=== PATIENT | female | born 1990 | race Caucasian/White ===

== ENCOUNTER 2024-03-02 09:10 | Emergency (ER) | payer BC, SELFPAY ==
[2024-03-02 09:15] VITALS: BP 127/76
[2024-03-02 09:46] VITALS: BMI 26.1
[2024-03-02] MEDS: TYLENOL 1000 MG PO (09:50)
[2024-03-02] MEDS: NSS 500 IV (09:53)
[2024-03-02] MEDS: BENADRYL 25 MG IV (09:54)
[2024-03-02] MEDS: REGLAN 10 MG IM (09:56)
--- NOTE | 2024-03-02 10:19 | ED.GENMED ---
History of Present Illness
General
Chief Complaint: Headache
Time Seen by Provider: 03/02/24 09:24
History of Present Illness
History of Present Illness:
33-year-old female with history of migraines presenting to the emergency department for migraine headache. Patient reports severe migraine headache. Her headaches have been worsening within the past 5 weeks, and in the past 3 days have
become more severe, frontal with photophobia and phonophobia. Feel consistent with her typical migraines, however worse in intensity. Denies any recent fall or trauma. Denies any focal weakness or sensory deficits to her extremities. Denies any
fever or systemic symptoms. Notes that she did take an Imitrex prior to arrival, without relief of her symptoms. Denies any complaints such as vaginal bleeding or leakage of fluids. Denies abdominal pain. Denies additional acute medical
complaints
Phy Exam
Physical Exam
Physical Exam:
General: Well-appearing, no clinical signs of dehydration, nontoxic and in no acute distress
HEENT: protecting airway
Neck: appears supple
CV: Normal heart rate, regular rhythm, no evidence of cyanosis
Resp: No accessory muscle use, no increased work of breathing, lungs clear to auscultation bilaterally
Abd: Soft and non-distended, no tenderness to palpation, normal bowel sounds
Extremities: No deformities, no swelling, no erythema, pulses and sensation intact
Neuro: alert, no focal neurologic deficit
: deferred
Rectal: deferred
Psych: Normal affect
Skin: Intact
Course
Orders/Labs/Results
Orders:
Orders
03/02/24 09:36
0.9% Sodium Chloride 500 ml [Nss] 500 ml IV BOLUS
Acetaminophen [Tylenol] 1,000 mg PO NOW STA
Diphenhydramine [Benadryl] 25 mg IV NOW STA
Metoclopramide [Reglan] 10 mg IM NOW STA
03/02/24 11:06
0.9% Sodium Chloride 1000 ml [Nss] 1,000 ml IV BOLUS
03/02/24 12:23
Magnesium Sulfate 1 G/D5w [Magnesium Sulfate] 1 gm in 100 ml IV NOW
03/02/24 12:59
CT Head W/o Iv Contrast Urgent
Comment:
Reason For Exam: intractable headache, 13 weeks preg, consents
Vital Signs
Initial and Last Documented VS:
Initial Vital Signs
Temp Pulse Resp BP Pulse Ox
99.5 F 63 16 127/76 98
03/02/24 09:15 03/02/24 09:15 03/02/24 09:15 03/02/24 09:15 03/02/24 09:15
Last Documented Vital Signs
Temp Pulse Resp BP Pulse Ox
99.5 F 51 16 107/51 99
03/02/24 09:15 03/02/24 11:29 03/02/24 09:15 03/02/24 11:29 03/02/24 11:29
MDM/Problems Addressed
MDM/Problems Addressed:
33-year-old female, at 13 weeks gestation with history of migraines presenting to the emergency department for migraine. Vital signs are normal.
On examination, patient well-appearing, nontoxic. Benign and neurologic exam, no focal deficits. Syndrome presentation appears most consistent with migrainous headache. Patient afebrile without systemic symptoms. No meningismus, without concern
for meningitis. Again no focal neurologic deficits, without concern for central neurologic process. Blood pressure within normal limits, without concern for pseudotumor cerebri or preeclampsia. Will treat with Reglan, Benadryl, Tylenol and
reassess for improvement. Will also obtain heart tones
11:00 -patient reports slight improvement of symptoms. Will administer additional fluids. Normal heart rate on ultrasound by bedside
12:20 -patient sleeping comfortably, however continues to express headache. Will try IV magnesium. Given persistence of symptoms, in shared decision-making, decision made to proceed with CT brain
14:20 -CT negative. Patient notes some symptom improvement after magnesium. She feels comfortable with discharge home. She has a follow-up appoint with her neurologist on Monday. Feel stable for discharge again with close interval follow-up.
Advised continued oral hydration. Strict return precautions communicated and patient verbalized understanding
*Critical Care Note
Total Time (30-74mins, 75-104mins- exclusive of procedures): Not Applicable
ED Attending Note
-
Portions of this chart may have been created with voice recognition software.� Occasional wrong word or��sound alike� substitutions may have occurred due to the inherent limitations of voice recognition software.
Discharge Plan
Departure
Prescriptions:
No Action
prenat.vits,preston,giz-upcp-oulbr [ Vitamin] 1 EACH tablet
1 tab PO DAILY
loratadine-pseudoephedrine 240 MG/10 MG tablet extended release 24 hr
1 tab PO DAILY
acetaminophen 325 MG tablet
650 mg PO Q4HPRN PRN (Reason: mild pain) 0RF
sennosides-docusate sodium 1 TABLET tablet
1 tab PO DAILYPRN PRN (Reason: constipation) 0RF
ibuprofen 600 MG tablet
400 mg PO Q4HPRN PRN (Reason: moderate pain/cramps) 0RF
Referrals:
Annelise Hebert CRNP [Family Provider] -
Interventions
Interventions:
*Risk Screen - Suicide Last Done: 03/02/24 09:15
*General Assessment Last Done: 03/02/24 09:15
*Neglect/Abuse Screening Last Done: 03/02/24 09:15
ED- Fall Risk Assessment Last Done: 03/02/24 10:04
*ED COVID-19 Vaccine History Last Done: 03/02/24 10:04
ED- Neurological Assessment Last Done: 03/02/24 10:02
Discharge Date and Time
Print Language: SURINAMESE
[2024-03-02] MEDS: NSS 1000 IV (11:17)
[2024-03-02 11:29] VITALS: BP 107/51
[2024-03-02] MEDS: MAGNESIUM SULFATE 100 IV (12:57)
[2024-03-02 15:04] VITALS: BP 107/66
== END 2024-03-02 15:06 | disposition home or self-care (01) ==
LOC: EMR 09:10
PROVIDERS: EMERGENCY PHYSICIAN Student in an Organized Health Care Education/Training Program; FAMILY PHYSICIAN Nurse Practitioner Adult Health
DX: O99.351 Diseases of the nervous system complicating pregnancy, first trimester (principal); G43.909 Migraine, unspecified, not intractable, without status migrainosus; Z3A.13 13 weeks gestation of pregnancy
CPT/HCPCS: 99284; 96374; 96375; 96372; 96361; 70450

== ENCOUNTER → 2024-03-04 06:50 | Outpatient (REF) | payer BC, SELFPAY | LOC: PNTC 06:50 | PROVIDERS: ATTENDING PHYSICIAN Obstetrics & Gynecology | DX: Z36.0 Encounter for antenatal screening for chromosomal anomalies (principal); Z36.82 Encounter for antenatal screening for nuchal translucency; O09.529 Supervision of elderly multigravida, unspecified trimester | CPT/HCPCS: 76801; 76813 ==

== ENCOUNTER 2024-09-08 02:44 | Inpatient (IN) | payer BC, SELFPAY ==
[2024-09-08 03:20] VITALS: BP 130/77; BMI 29.7
[2024-09-08] MEDS: LR 1000 IV (03:30)
[2024-09-08 03:33] LABS: % Basophils 0.4 % (0-2); % Eosinophils 0.9 % (0-6); % Immature Granulocytes 0.4 % (0-0.5); % Lymphocytes 18.8 % (20.5-51.1); % Monocytes 6.6 % (1.7-9.3); % Neutrophils 72.9 % (42.2-75.2); Absolute Eosinophils 0.1 10^3/uL (0-0.7); Absolute Lymphocytes 1.8 10^3/uL (1.2-3.4); Absolute Monocytes 0.6 10^3/uL (0.1-0.6); Hematocrit 37.8 % (37.0-47.0); Hemoglobin 13.5 g/dL (12.0-16.0); Mean Corp Hgb Conc. 35.7 g/dL (33.0-37.0); Mean Corpuscular Hgb 32.5 pg (27.0-31.0); Mean Corpuscular Volume 91.1 fL (81.0-99.0); Mean Platelet Volume 10.8 fL (7.4-10.4); Nucleated Red Blood Cells % 0 %; Platelet Count 221 10^3/uL (130-400); Red Blood Cell Count 4.15 10^6/uL (4.20-5.40); Red Cell Dist. Width 13.1 % (11.5-14.5); White Blood Cell Count 9.6 10^3/uL (4.8-10.8)
[2024-09-08] MEDS: SUBLIMAZE 100 MCG EPIDURAL (05:16)
[2024-09-08] MEDS: FENTANYL/BUPIVACAINE 100 EPIDURAL (05:17)
[2024-09-08] MEDS: ZOFRAN 4 MG IV ×2 (07:01→11:21)
[2024-09-08] MEDS: PITOCIN 30 UNITS/NSS 500 ML IV (08:18)
[2024-09-08] MEDS: MOTRIN 600 MG PO ×2 (14:40→20:43)
[2024-09-08] MEDS: SENOKOT-S 1 TABLET PO (14:40)
[2024-09-08] MEDS: TYLENOL 650 MG PO ×2 (14:40→20:44)
[2024-09-09 03:40] LABS: Hematocrit 32.9 % (37.0-47.0); Hemoglobin 11.7 g/dL (12.0-16.0)
[2024-09-09] MEDS: MOTRIN 600 MG PO ×3 (04:32→20:51)
[2024-09-09] MEDS: TYLENOL 650 MG PO ×2 (04:32→20:51)
[2024-09-09] MEDS: SENOKOT-S 1 TABLET PO (12:54)
[2024-09-10] MEDS: MOTRIN 600 MG PO (05:22)
[2024-09-10] MEDS: TYLENOL 650 MG PO (05:23)
[2024-09-10 16:06] LABS: Syphilis/T. pallidum Ab Reflex Negative (Negative)
== END 2024-09-10 12:25 | disposition home or self-care (01) | DRG 807 ==
LOC: LDRP 02:44
PROVIDERS: Obstetrics & Gynecology; ADMITTING PHYSICIAN Obstetrics & Gynecology
PROC: 10907ZC Drainage of Amniotic Fluid, Therapeutic from Products of Conception, Via Natural or Artificial Opening (ICD-10-PCS; 2024-09-08)
PROC: 10E0XZZ Delivery of Products of Conception, External Approach (ICD-10-PCS; 2024-09-08)
DX: O77.0 Labor and delivery complicated by meconium in amniotic fluid (principal); Z37.0 Single live birth; O76 Abnormality in fetal heart rate and rhythm complicating labor and delivery; Z3A.36 36 weeks gestation of pregnancy; O69.81X0 Labor and delivery complicated by cord around neck, without compression, not applicable or unspecified
CPT/HCPCS: 88307; 85014; 85018; 85025; 86780; 86850; 86900; 86901

== ENCOUNTER → 2024-12-20 14:08 | Outpatient (REF) | payer OTHER, SELFPAY | LOC: WDC 14:08 | PROVIDERS: ATTENDING PHYSICIAN Obstetrics & Gynecology | DX: N64.4 Mastodynia (principal) | CPT/HCPCS: 76642 ==